=== PATIENT | female | born 1995 | race Caucasian/White ===

== ENCOUNTER 2016-05-31 14:50 | Emergency (ER) | payer OTHER | END 2016-05-31 16:05 | disposition home or self-care (01) | LOC: ER 14:50 | DX: J02.0 Streptococcal pharyngitis (principal) | CPT/HCPCS: 87400; 87880; 96372; 99282-25 ==

== ENCOUNTER 2016-06-20 13:27 | Emergency (ER) | payer OTHER | END 2016-06-20 14:20 | disposition home or self-care (01) | LOC: ER 13:27 | DX: J03.90 Acute tonsillitis, unspecified (principal); F17.210 Nicotine dependence, cigarettes, uncomplicated | CPT/HCPCS: 96372; 99282-25 ==